=== PATIENT | male | born 1965 | race Caucasian/White ===

== ENCOUNTER → 2017-05-10 | Outpatient (CLI) | payer OTHER ==
[~2017-05-10] MED LIST: ATENOLOL PO; GEMFIBROZIL PO; LEVOTHYROXINE PO; OMEPRAZOLE PO
--- NOTE | 2017-06-27 04:54 | HKNOTE ---
DATE OF SERVICE: 05/10/2017 REFERRING PHYSICIAN: Dr. Cristiano Moore [address] [address] MAIN COMPLAINT: Pain in the left knee. HISTORY OF MAIN COMPLAINT: The patient is a 52-year-old male who is referred by Dr. Cristiano Moore. His main complaint is pain in both knees. He complains that the pain started in the right knee about 4 months ago[address] He saw Dr[address] Frazier. He gave him an injection of cortisone into the knee, which helped a great deal. Today he has pain only in the left knee. The patient seen at [facility] apparently approximately 2 weeks ago and he was put on antibiotics. No aspiration was performed prior to putting him on the antibiotics. The patient believes that they thought he might have an infection in the knee. The patient complains of pain in the left knee, which does not radiate up or down the leg. Pain is described as being severe. He is not able to run and has pain on stairs with every step that he takes. The pain is aggravated by walking, weightbearing, and stair climbing. The leg left knee swells. There is no locking. Occasionally, the knee pops with pain. The knee is unstable and he is afraid to bear weight on the left. He does get rest pain and night pain. He currently takes diclofenac and Lester as well as methylprednisolone Dosepak. He had breakthrough pain increase with Tylenol. He does get night pain and the patient occasionally wakes him up. He has a prior history of surgery to the lumbar spine and a continuing complaint of pain in the lower back. On a level surface, he can walk about 1 block without stopping. He limps all the time. He does not have a shoe lift. He can clip his toenails, but he has pain in the knee. PAST ORTHOPEDIC HISTORY: Anterior cervical spine fusion, January [address] Laboy at [facility], May 2011, lumbar spine fusion by Dr. Laboy at [facility]. PRIOR CORTISONE INTAKE: The patient has had 4 injections in the past. ALCOHOL INTAKE: "Once in a while." OTHER JOINT PROBLEMS: Left knee pain. BLOOD TESTS FOR ARTHRITIS: None. PRIOR INJURIES TO HIPS AND KNEES: None. WORK STATUS: The patient is disabled since 2010 when he had surgery of the spine. PAST MEDICAL HISTORY: 1. Hypertension 2. Hypercholesterolemia. 3. Hypothyroidism. PAST SURGICAL HISTORY: Cervical spine and lumbar spine fusions by Dr. Laboy. ALLERGIES: NONE. MEDICATIONS: 1. Celecoxib 100 mg twice a day. 2. Vitamin D3 2000 units once a day. 3. 40 mg once a day. 4. Levothyroxine 125 mcg daily. 5. Omeprazole to 20 mg daily. 6. Folic acid 1 mg daily. 7. Atenolol 50 mg daily. 8. Paroxetine 4 mg daily for anxiety. FAMILY HISTORY: Mother age 86, alive and has heart problems. Otherwise noncontributory. SYSTEMS REVIEW: Prone to heartburn, hypertension, hemorrhoids. HABITS: The patient does not smoke. He drinks 1-2 alcoholic beverages twice a month. 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 VITAL SIGNS: Height 6 foot 2, weight 180 pounds. Blood pressure 123/70, temperature 98.8. The patient walks without a walking aid. HIPS: Both hips have full range of motion without pain. KNEES: Examination of the left knee. Tender over the medial joint line. Range of motion is full and without pain. Marked tenderness over AC joint and marked tenderness over the medial joint line. Examination of the right knee, normal. IMAGING: Imaging of the left knee obtained at the [facility] today show marked narrowing of the medial joint space and mild narrowing of the lateral aspect of the patellofemoral joint. DIAGNOSIS: Suspect torn meniscus. DISCUSSION: The patient is a 52-year-old male with quite severe pain in the left knee. He has the classic symptoms of an internal derangement of the knee, including instability. His x- rays show the knee marked narrowing of the medial joint space. The degree of arthritis is short on bone on bone, and there are none of the secondary changes of osteoarthritis. The patient is only 52 years old. He was referred to me for consideration for knee replacement, but I believe that he possibly has a torn meniscus. Under sterile conditions, he was given injection of 2 cc of Kenalog and 6 cc of 2 percent lidocaine into the left knee. He was given my oral surgery assistant, Kimberlyn, card and was advised to call her to order an MRI scan of the knee if the knee is not much improved in approximately 2 weeks. This patient was seen on 05/10/2017 at a time when I was suffering quite severely from pain in my lower back and this chart was not dictated until June 26. There may be inaccuracies because some of this was dictated from memory. Dictated By: Jose Ashford MD /andrew/travon /Document#: [id number]
== END | disposition home or self-care (01) ==
LOC: HKI 13:40
DX: M25.562 Pain in left knee (principal); M54.5 Low back pain; I10 Essential (primary) hypertension; E78.00 Pure hypercholesterolemia, unspecified; E03.9 Hypothyroidism, unspecified; Z98.1 Arthrodesis status
CPT/HCPCS: 20610; Z7500; Z7610; G0463

== ENCOUNTER → 2017-07-24 | Outpatient (CLI) | payer OTHER ==
--- NOTE | 2017-07-25 04:30 | HKNOTE ---
DATE OF SERVICE: 07/24/2017 Patient comes in with the MRI scan of his left knee for review. The MRI obtained at the [facility] on 07/09/[address] Garcias as showing "chronic tear of the body and pos terior horn of the medial meniscus. Oblique tear of the posterior horn of the lateral meniscus. Mo derate tricompartmental osteoarthritis. Numerous ossified loose bodies. Synovitis and joint effusi on". The MRI scan was gone over with him and his son. His son is a newly minted RN. His also comes with him. Using an model he was shown what a meniscus is and was then advised that if he wants to get better he should consider having an arthroscopic operation on the knee. The surgery and some of the major possible complications were discussed with him and his son. The postoperative course was discussed with them. Note that they were specifically warned that he will still have significant symptoms to go with the arthritis in his knee, he cannot expect to be cured completely from the procedure. He does have loc eliazar and instability and he certainly can hope that that might be cured by the operation. Patient will call to schedule his surgery in the near future. Dictated By: SARITA ZELAYA/SUMANTH Conf#: [id number] DID#: [id number]
== END | disposition home or self-care (01) ==
LOC: HKI 09:55
DX: M17.12 Unilateral primary osteoarthritis, left knee (principal)
CPT/HCPCS: G0463

== ENCOUNTER → 2017-08-14 | Outpatient (CLI) | payer OTHER ==
--- NOTE | 2017-08-14 18:26 | HKNOTE ---
DATE OF SERVICE: 08/14/2017 CHIEF COMPLAINT: Left knee pain. HISTORY OF PRESENT ILLNESS: This is a 52-year-old male who is complaining of chronic left knee pain . He has seen Dr. Ashford previously. He is having pain both on the inside and outside of his k nee. He has locking, catching and instability of his knee. He uses a cane for ambulation. The vicenta n has been worsening. He is taking pain medications without any pain relief. He has had previous p hysical therapy. He denies any groin or back pain. GAIT: Antalgic gait, reciprocal gait pattern. PHYSICAL EXAMINATION: LEFT KNEE: Neutral alignment. Tender over the medial and lateral joint lines, 0 to 120 degrees ran ge of motion, stable to varus and valgus stress. Negative Lorena, negative anterior drawer, negati ve posterior drawer. Positive Laith's. LEFT KNEE X-RAYS: Multiple views of the left knee demonstrate medial compartment joint space narrow ing. There are peripheral osteophytes. There are also degenerative changes of the patellofemoral j oint. MRI OF LEFT KNEE: There is a flap tear of the posterior horn of the medial meniscus. There is also an oblique tear of the posterior horn of the lateral meniscus. There is moderate tricompartmental arthritis. IMPRESSION: A 52-year-old male with left knee posterior horn medial and posterior horn lateral meni scus tears. PLAN: We will request authorization for left knee arthroscopy. He will require preoperative medica l clearance prior to surgery. Dictated By: BUSTER RUBALCAVA/SUMANTH Conf#: [id number] DID#: [id number]
--- NOTE | 2017-08-16 09:49 | RADRPT ---
PROCEDURE: Left knee radiographs. CLINICAL INDICATION: Left knee pain. TECHNIQUE: Three views. Weight bearing. Frontal, lateral, and patellar view. COMPARISON: No prior studies are available for comparison. FINDINGS: There is no fracture or dislocation. There is a small joint effusion. There are degenerative changes with osteophytes arising from all 3 joint compartment margins. There is medial joint compartment narrowing. Possible intra-articular loose bodies are noted posteriorly i n the medial joint compartment measuring 1.2 cm and 1.4 cm. There is no lytic or blastic lesion. There is no radiopaque foreign body. IMPRESSION: 1. Small joint effusion. 2. Moderate degenerative change. 3. Possible intra-articular loose bodies in the medial joint compartment posteriorly. 4. Otherwise unremarkable images of the left knee. RPTAT: QQ .Jose Bonner MD, MD Date Time Electronically viewed and signed by .Jose Bonner MD, MD on 08/16/2017 09:49 .R/
== END | disposition home or self-care (01) ==
LOC: HKI 14:21
PROVIDERS: ATTEND Orthopaedic Surgery Adult Reconstructive Orthopaedic Surgery
DX: M23.252 Derangement of posterior horn of lateral meniscus due to old tear or injury, left knee (principal); M23.222 Derangement of posterior horn of medial meniscus due to old tear or injury, left knee
CPT/HCPCS: 73562; Z7500; G0463

== ENCOUNTER → 2017-09-03 | Outpatient (CLI) | payer OTHER ==
[~2017-09-03] MED LIST changes: +CELE100C PO; +HYDR-902 PO; +PARO40TA48 PO; +VIT D PO
--- NOTE | 2017-09-04 05:18 | HKNOTE ---
DATE OF SERVICE: 09/03/2017 CHIEF COMPLAINT: Left knee pain. HISTORY OF PRESENT ILLNESS: This is a 52-year-old male with left knee medial and lateral meniscus t ear. He is here today for his preoperative evaluation. PLAN: I discussed the risks associated with surgery, which include but are not limited to infection , deep venous thrombosis, pulmonary embolism, damage to neurovascular structures, numbness around th e incision site, a progression of arthritis, need for knee replacement in the future, heart attack, stroke, risks associated with anesthesia and even . I also discussed nonoperative intervention including pain medications, assistive devices and braces. Patient would like to proceed with surge ry. Informed consent was obtained. All questions were answered to satisfaction. He was given a pr escription for pain medication. The plan is to proceed with a left knee arthroscopy on 09/04/2017 a [facility]. Dictated By: BUSTER RUBALCAVA/SUMANTH Conf#: [id number] DID#: [id number]
== END | disposition home or self-care (01) ==
LOC: HKI 10:49
PROVIDERS: ATTEND Orthopaedic Surgery Adult Reconstructive Orthopaedic Surgery
DX: Z01.818 Encounter for other preprocedural examination (principal); M25.562 Pain in left knee
CPT/HCPCS: G0463

== ENCOUNTER 2017-09-04 05:49 | Day surgery (SDC) | payer OTHER ==
[2017-09-03 14:15] VITALS: Ht 188 cm; Wt 123.8 kg
[2017-09-04] VITALS (12 sets, daily range): BP systolic 109–134; BP diastolic 60–70; PULSE 52–99; RESP 12–20
[~2017-09-04] VITALS: Ht 188 cm; Wt 123.8 kg
[~2017-09-04 05:49] MED LIST changes: -CELE100C PO; -HYDR-902 PO; -PARO40TA48 PO; -VIT D PO
[2017-09-04] MEDS ORDERED: LANSOPRAZOLE 30 MG CAP PO ONE (06:30)
[2017-09-04] MEDS ORDERED: LACTATED RINGER'S 1,000 ML IV SCH (06:30)
[2017-09-04] MEDS ORDERED: DEXAMETHASONE 4 MG/ML 1 ML INJ IV ONE (06:30)
[2017-09-04] MEDS ORDERED: CEFAZOLIN 2 GM/50 ML (PMX) 50 ML IVPB ONE (06:30)
[2017-09-04] MEDS ORDERED: oxyCODONE (CR) 10 MG TAB [oxyCONTIN] PO ONE (06:30)
[2017-09-04] MEDS ORDERED: ACETAMINOPHEN 1000MG/100ML IV 100 ML IVPB ONE (06:30)
[2017-09-04] MEDS ORDERED: CELECOXIB 200 MG CAP PO ONE (06:30)
[2017-09-04] MEDS ORDERED: ONDANSETRON 4 MG INJ IV ONE (06:30)
--- NOTE | 2017-09-04 06:48 | HPN ---
Date/Time of Note Date/Time of Note DATE: 09/04/17 TIME: 06:48 Interval H&P Admission Note Pt. seen H&P reviewed: No system changes ELOY MAYNARD PA-C Sep 04, 2017 06:48
[2017-09-04] MEDS ORDERED: ROCURONIUM 50 MG INJ ONE ×2 (07:00→07:08)
[2017-09-04] MEDS ORDERED: LIDOCAINE 100 MG SYRINGE ONE (07:08)
[2017-09-04] MEDS ORDERED: PROPOFOL 20 ML ONE (07:08)
[2017-09-04] MEDS ORDERED: FENTAnyl 50 MCG/ML VIAL ONE (07:08)
[2017-09-04] MEDS ORDERED: CEFAZOLIN 1 GM INJ ONE (07:08)
[2017-09-04] MEDS ORDERED: HYDR-902 PO (07:10)
[2017-09-04] MEDS ORDERED: VIT D PO (07:10)
[2017-09-04] MEDS ORDERED: PARO40TA48 PO (07:10)
[2017-09-04] MEDS ORDERED: CELE100C PO (07:10)
[2017-09-04] MEDS ORDERED: ONDANSETRON 4 MG INJ ONE (07:11)
[2017-09-04] MEDS ORDERED: FAMOTIDINE 20 MG INJ ONE (07:11)
[2017-09-04] MEDS ORDERED: METOCLOPRAMIDE 10 MG INJ ONE (07:11)
[2017-09-04] MEDS ORDERED: TRIAMCINOLONE ACET 40 MG/ML INJ ONE (07:59)
[2017-09-04] MEDS ORDERED: LIDOCAINE 1% (MPF) 10 ML INJ ONE (07:59)
[2017-09-04] MEDS ORDERED: ONDANSETRON 4 MG INJ IV PRN ×2 (08:00→09:00)
[2017-09-04] MEDS ORDERED: NEOSTIGMINE 3 MG/3 ML SYRINGE ONE (08:22)
[2017-09-04] MEDS ORDERED: GLYCOPYRROLATE 0.4 MG INJ ONE (08:23)
--- NOTE | 2017-09-04 08:24 | SIPON ---
Date/Time of Note Date/Time of Note DATE: 09/04/17 TIME: 08:23 Operative Report Preoperative Diagnosis Left Knee posterior horn medial meniscus tear Postoperative Diagnosis same Operation/Procedure Performed Left knee arthroscopy with partial medial menisectomy Left Knee Steroid Injection Surgeon Cirilo Velazquez MD dairy and food laboratory assistant None Anesthesia: general Estimated blood loss: none Transfusion Required none Specimen none Grafts/Implants none Complications none CIRILO VELAZQUEZ MD Sep 04, 2017 08:24
[2017-09-04] MEDS ORDERED: OXYCODONE/ACETAMINOPHEN (5/325) TAB PO PRN ×2 (09:00)
[2017-09-04] MEDS ORDERED: MIDAZOLAM 1 MG/ML 2 ML INJ IV PRN (09:00)
[2017-09-04] MEDS ORDERED: HYDROmorphONE (0.2 MG/ML) 10ML SYG IV PRN ×3 (09:00)
[2017-09-04] MEDS ORDERED: hydrALAzine 20 MG INJ IV PRN (09:00)
[2017-09-04] MEDS ORDERED: LABETALOL HCL 20MG INJ IV PRN (09:00)
[2017-09-04] MEDS ORDERED: FENTAnyl 50 MCG/ML VIAL IV PRN ×3 (09:00)
[2017-09-04] MEDS ORDERED: KETOROLAC 30 MG INJ IV PRN (09:00)
[2017-09-04] MEDS ORDERED: METOCLOPRAMIDE 10 MG INJ IV PRN (09:00)
[2017-09-04] MEDS ORDERED: MEPERIDINE 25 MG INJ IV PRN (09:00)
[2017-09-04] MEDS ORDERED: EPHEDrine SULFATE 50 MG/5 ML SYG IV PRN (09:00)
[2017-09-04] MEDS ORDERED: ALBUTEROL 0.083% (NEB) 2.5 MG/3 ML AMP HHN PRN (09:00)
[2017-09-04] MEDS ORDERED: DIPHENHYDRAMINE 50 MG INJ IV PRN (09:00)
--- NOTE | 2017-09-04 11:29 | OPR ---
DATE OF OPERATION: 09/04/2017 PREOPERATIVE DIAGNOSIS: Left knee posterior horn medial meniscus tear. POSTOPERATIVE DIAGNOSIS: Left knee posterior horn medial meniscus tear. OPERATION PERFORMED: 1. Left knee arthroscopic partial medial meniscectomy. 2. Left knee steroid injection. SURGEON: Buster Velazquez MD. LAPIDARY APPRENTICE: None. ANESTHESIOLOGIST: Dr. Servin. ANESTHESIA: General. ESTIMATED BLOOD LOSS: Minimal. COMPLICATIONS: None. TOURNIQUET TIME: 18 minutes at 250 mmHg. DISPOSITION: To PACU in stable condition. INDICATION FOR PROCEDURE: This is a 52-year-old male with left knee medial meniscus tear who had fa iled nonoperative management. Risks, benefits and alternatives of surgical intervention were discus sed with the patient and informed consent was obtained. The risks of surgery include but are not limited to infection, deep venous thrombosis, pulmonary emb olism, numbness around the incision site, wound healing problems, progression of arthritis, need for knee replacement in the future, heart attack, stroke, risks associated with anesthesia and even ronna th. DETAILS OF PROCEDURE: The patient was met in the preoperative suite and the correct operative site was confirmed and marked. He was then brought into operating room. After induction of general anes thesia, he was placed in the supine position on the operating table. A tourniquet was applied to th e left upper thigh and the left lower extremity was prepped and draped in the usual sterile fashion. Before starting, a timeout was taken to identify the correct operative site and to confirm that pr eoperative antibiotics consisting of 1 gram of IV Ancef was administered. At this point, the leg wa s then exsanguinated with an Esmarch and tourniquet was then insufflated to 250 mmHg for the above-n oted time. A stab incision was made along the anterolateral aspect for the anterolateral portal. T he trocar was then inserted followed by the arthroscope. The patellofemoral joint was visualized. The arthroscope was then entered into the patellofemoral joint and into the medial gutter. There we re no loose bodies or plica seen. The arthroscope was then introduced into the medial compartment. 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 There was grade III chondromalacia of the medial tibial plateau. At this point, the spinal need le was then used. The chondromalacia changes were all stable and did not require any chondroplasty. The spinal needle was used for orientation of the medial portal. A small stab incision was made a nd the probe was introduced into the medial compartment. A tear of the posterior horn of the medial meniscus was identified. The 3.5 mm sucker shaver was then introduced into the medial compartment and a partial medial meniscectomy was performed. At this point, the arthroscope was then introduced into the intercondylar notch. The anterior cruciate ligament was probed and noted to be degenerate d. The arthroscope was introduced into the lateral compartment. No abnormalities were seen within the lateral compartment. The instruments were removed. There was no evidence of breakage. After r emoval of the instruments, an injection consisting of 1 mL of Kenalog along with 3 mL of 1% lidocain e was distilled through the lateral portal. The incision sites were closed using 3-0 nylon. A ster ile dressing followed by a total groin Dheeraj wrap was applied. There were no complications. He was t ransferred to PACU in stable condition. POSTOPERATIVE CARE: He will be weightbearing as tolerated. He will receive medications for pain co ntrol. He was encouraged to flex and extend the knee as well as the ankle. Crutches will be provid ed if he is unable to ambulate without the use of assistive devices. He will follow up at the [facility] within 2 weeks postoperatively. Dictated By: BUSTER RUBALCAVA/SUMANTH Conf#: [id number] DID#: [id number]
[2017-09-04] MEDS ORDERED: HYDROCODONE/APAP (10/325) TAB PO PRN (13:00)
[2017-09-04] MEDS ORDERED: morphine 10 MG INJ IV PRN (13:00)
[2017-09-04] MEDS ORDERED: HYDROCODONE/APAP (5/325) TAB PO PRN (13:00)
== END 2017-09-04 10:00 | disposition home or self-care (01) ==
LOC: SDS 05:49
PROVIDERS: ATTEND Orthopaedic Surgery Adult Reconstructive Orthopaedic Surgery
DX: S83.242A Other tear of medial meniscus, current injury, left knee, initial encounter (principal); E78.5 Hyperlipidemia, unspecified; I10 Essential (primary) hypertension; E66.01 Morbid (severe) obesity due to excess calories; X58.XXXA Exposure to other specified factors, initial encounter; Y93.89 Activity, other specified; Y92.89 Other specified places as the place of occurrence of the external cause; Y99.8 Other external cause status
CPT/HCPCS: 29881; J0131; J0690; J1100; J2001; J2405; J3010; Z7512; Z7610; J2710; J2765

== ENCOUNTER → 2017-09-18 | Outpatient (CLI) | END | disposition home or self-care (01) ==

== ENCOUNTER 2018-11-14 06:50 | Inpatient (IN) | payer OTHER ==
[2018-11-14] VITALS (22 sets, daily range): BP systolic 80–119; BP diastolic 51–89; PULSE 76–99; RESP 12–34; Ht 188 cm; Wt 117.5 kg
[~2018-11-14] VITALS: Ht 188 cm; Wt 117.5 kg
[~2018-11-14 06:50] MED LIST changes: +CEFAZOLIN 2 GM/50 ML (PMX) 50 ML IVPB SCH; +CELE100C PO; +HYDR-3980 PO; +PARO40TA63 PO; +SOD CHLORIDE 0.9% 1,000 ML IV SCH; +VIT D PO
[2018-11-14] MEDS ORDERED: EPHEDrine SULFATE 50 MG/5 ML SYG ONE (07:00)
[2018-11-14] MEDS ORDERED: SEVOFLURANE 15 MIN ONE (07:00)
[2018-11-14] MEDS ORDERED: LEVO137T26 PO (08:19)
[2018-11-14] MEDS ORDERED: ATEN50TA PO (08:19)
[2018-11-14] MEDS ORDERED: ATOR40TA68 PO (08:20)
[2018-11-14] MEDS ORDERED: OMEP40CA6 PO (08:20)
[2018-11-14] MEDS ORDERED: ESCI20TA38 PO (08:20)
[2018-11-14] MEDS ORDERED: DICL75TA2 PO (08:21)
--- NOTE | 2018-11-14 10:23 | PREAC ---
Date/Time of Note Date/Time of Note DATE: 11/14/18 TIME: 10:22 Anesthesia Eval and Record Evaluation Time Pre-Procedure Interview DATE: 11/14/18 TIME: 10:22 Age 53 Sex male NPO: 8 hrs Preoperative diagnosis cholelithiasis Planned procedure laparoscopic cholecystectomy Past Medical History Past Medical History: Includes Cardio: HTN, Dyslipidemia Endo: Hypothyroid GI: GERD, Obesity Psych: Anxiety Surgery & Anesthesia Issues No known issue Meds Anticoagulation: No Beta Jose Raul within 24 hr: No Reason Beta Jose Raul not given: Pt. not on B-Jose Raul Reported Medications Diclofenac Sodium* (Diclofenac Sodium*) 75 Mg Tablet., 75 MG PO BID, #60 TAB 11/14/18 Escitalopram Oxalate* (Escitalopram Oxalate*) 20 Mg Tablet, 20 MG PO DAILY, #30 TAB 11/14/18 Atorvastatin* (Atorvastatin*) 40 Mg Tablet, 40 MG PO QHS, #30 TAB 11/14/18 Omeprazole* (Omeprazole*) 40 Mg Capsule., 40 MG PO DAILY, #30 CAP 11/14/18 Levothyroxine Sodium* (Levoxyl*) 137 Mcg Tablet, 137 MCG PO BEFORE BREAKFAST, #30 TAB 11/14/18 Atenolol* (Atenolol*) 50 Mg Tablet, 50 MG PO DAILY, #30 TAB 11/14/18 Discontinued Reported Medications Celecoxib* (Celebrex*) 100 Mg Capsule, 100 MG PO BID, CAP 09/04/17 Hydrocodone/Acetaminophen (Warren 10-325 Tablet) 1 Each Tablet, 1 EACH PO TID for PAIN, TAB 09/04/17 [Vit D] No Conflict Check, 2000 UNIT PO DAILY 09/04/17 Paroxetine Hcl* (Paxil*) 40 Mg Tablet, 40 MG PO DAILY, TAB 09/04/17 [Levothyroxine] No Conflict Check, 137 MCG PO DAILY 02/07/16 [Gemfibrozil] No Conflict Check, PO DAILY 02/07/16 [Atenolol] No Conflict Check, 50 MG PO DAILY 02/07/16 [Omeprazole] No Conflict Check, 20 MG PO DAILY 02/07/16 Current Medications Sodium Chloride 1,000 ml @ 75 mls/hr [id number] IV ; Start 11/14/18 at 06:00; Stop 11/14/18 at 19:19 Cefazolin Sodium/ Dextrose 50 ml @ 100 mls/hr PREOP IVPB ; Start 11/14/18 at 06:00; Stop 11/14/18 at 17:00 Meds reviewed: Yes Allergies Coded Allergies: tramadol (Verified Allergy, Severe, ITCHING, 11/14/18) Allergies Reviewed: Yes Labs/Studies Labs Reviewed: Reviewed by anesthesiologist test: N/A Pre-procedure Exam Last vitals Vital Signs Date Temp Pulse Resp B/P (MAP) Pulse Ox O2 O2 Flow FiO2 Time Delivery Rate 11/14/18 98.3 82 16 106/62 94 Room Air 08:44 (77) Airway: Adequate mouth opening, Adequate thyromental dist Mallampati: Mallampati III Teeth: Normal Lung: Normal Heart: Normal ASA Physical Status ASA physical status: 2 Emergency: None Planned Anesthetic General/MAC: ETT Nerve block: TAP (bilateral) Planned Pain Management Single shot nerve block, Parenteral pain med Pre-operative Attestations Prior to commencing anesthesia and surgery, the patient was re-evaluated, there was verification of: *The patient's identity *The results of appropriate recent lab work and preoperative vital signs *The above evaluation not changing prior to induction *Anesthetic plan, risk benefits, alternative and complications discussed with patient/family; questions answered; patient/family understands, accepts and wishes to proceed. LYUDMILA RODRIGUEZ MD Nov 14, 2018 10:23
[2018-11-14] MEDS ORDERED: FENTAnyl 50 MCG/ML VIAL IV PRN ×2 (10:30)
[2018-11-14] MEDS ORDERED: HYDROmorphONE 1 MG/5 ML IV SYRINGE IV PRN ×3 (10:30)
[2018-11-14] MEDS ORDERED: MEPERIDINE 25 MG INJ IV PRN (10:30)
[2018-11-14] MEDS ORDERED: PROCHLORPERAZINE 10 MG INJ IV PRN (10:30)
[2018-11-14] MEDS ORDERED: DIPHENHYDRAMINE 50 MG INJ IV PRN (10:30)
[2018-11-14] MEDS ORDERED: OXYCODONE/ACETAMINOPHEN (5/325) TAB PO PRN ×2 (10:30)
[2018-11-14] MEDS ORDERED: ONDANSETRON 4 MG INJ IV PRN (10:30)
[2018-11-14] MEDS ORDERED: FENTAnyl 50 MCG/ML VIAL ONE (10:39)
[2018-11-14] MEDS ORDERED: MIDAZOLAM 1 MG/ML 2 ML INJ ONE (10:39)
[2018-11-14] MEDS ORDERED: SUCCINYLCHOLINE CHLORIDE 100 MG/5 ML SYG IV ONE (10:43)
[2018-11-14] MEDS ORDERED: ROCURONIUM 50 MG INJ ONE ×2 (10:43→11:40)
[2018-11-14] MEDS ORDERED: PROPOFOL 20 ML ONE ×2 (10:43→11:40)
[2018-11-14] MEDS ORDERED: LIDOCAINE 2% (SDV) 5 ML INJ ONE (10:44)
[2018-11-14] MEDS ORDERED: ROPIVACAINE 0.5 % 30 ML VIAL ONE (10:44)
[2018-11-14] MEDS ORDERED: ONDANSETRON 4 MG INJ ONE (10:58)
[2018-11-14] MEDS ORDERED: CEFAZOLIN 1 GM INJ ONE (10:58)
[2018-11-14] MEDS ORDERED: DEXAMETHASONE 4 MG/ML 5 ML INJ ONE (10:58)
[2018-11-14] MEDS ORDERED: HYDROmorphONE 2 MG/ML SYG ONE (11:37)
[2018-11-14] MEDS ORDERED: GLYCOPYRROLATE 0.4 MG INJ ONE ×2 (12:32→12:34)
[2018-11-14] MEDS ORDERED: NEOSTIGMINE 3 MG/3 ML SYRINGE ONE ×2 (12:32→12:33)
[2018-11-14] MEDS ORDERED: BUPIVACAINE 0.5% (SDV) 30 ML INJ ONE (12:33)
[2018-11-14] MEDS ORDERED: PHENYLephrine (100 MCG/ML) 10ML SYG ONE (12:38)
--- NOTE | 2018-11-14 12:52 | OPR ---
Date/Time of Note Date/Time of Note DATE: 11/14/18 TIME: 12:44 Operative Report Procedure Date: Nov 14, 2018 Preoperative Diagnosis symptomatic gallstones Postoperative Diagnosis acute and chronic cholecystitis and abscess Operation/Procedure Performed 1. laparoscopic converted to open cholecystectomy 2. intraabdominal placement of percutaneous #19 stiven drain 3. washout of abscess of right upper quadrant intraabdominal abscess 4. therapeutic injection of subcutaneous local anesthesia 5. open lysis of adhesions 6. localized adjacent transfer with the use of skin flaps 42 sq cm defect Surgeon see signature line Manager Star none Anesthesia Type: general Estimated Blood Loss: 250 - 300 ml's Transfusion none Specimen gallbladder Grafts/Implants none Complications none Pt Condition Post Procedure: stable Indications This is a 53-year-old male with gallstones. He requires surgical excision of his gallbladder. Risks alternatives benefits and percent were discussed the patient. In particular potential complications including but not limited to bleeding infection intra-abdominal organ injury, bile duct injury need to open conversion were discussed the patient. Patient expressed understanding and consents to the operation. Procedure Description Patient is taken to the OR and prepped and draped in usual sterile fashion. Surgical time was performed. IV antibiotics given. Infra umbilical transverse incision was made with a 15 blade. Dissection with cautery was carried onto the fascia. The fascia was grasped with Bren and divided with curved Medrano scissors. 0 Vicryl U stitches placed into the fascia. Rosa trocar was introduced. Pneumoperitoneum is established. Midepigastric 12 mm optical trochars placed under direct position. Right upper quadrant upper flank 5 mm optical trochars were placed under direct visualization. Upon initial inspection due to his body habitus of weight of 117 kg the division was limited. Further inspection showed complete adhesions area of omentum to the right upper quadrant and the gallbladder was not visible. Attempted dissection was performed laparoscopically however there is evidence of acute cholecystitis. Additionally a pus pocket was identified. The pus pocket was opened and irrigated and suctioned out. Further dissection it appeared to be very challenging due to the active infection. Right subcostal incision was made with a 10 blade. Dissection with cautery was carried down through the layers of the abdominal wall and through the muscle layers. Tricia retractors were placed. Extensive lysis of adhesions was performed. There is multiple adhesions to the right upper quadrant and to the liver bed and over the gallbladder. This was performed meticulously with cautery and harmonic. This allowed visualization of the gallbladder. There is an extensive amount of stones with inflamed gallbladder with thickened wall. A pus pocket was again encountered in this area was washed out and irrigated. #19 Stiven drain was placed and tunneled through the right flank port site. This was left in place. The gallbladder was then dissected from the dome down approach and all the way down to the cystic duct. The cystic was thickened. An attempt was made to divide with a Rodanthe stapler however the cystic duct wall was thickened and so after resection with cautery this cystic duct stump was then oversewn with a running 0 Vicryl in 2 layers. This area was irrigated out and all contents were extracted. The liver bed was checked for hemostasis. There was some oozing. The liver bed was then imbricated and closed with blunt liver needle chromic 0 suture. The area of oozing was closed with a [id number] suture with a chromic and also hemostasis was augmented with snow. Good hemostasis was established and the drain was placed in appropriate right upper quadrant to allow further drainage of the infection. All counts were correct and closure was performed in a 2 layer fashion first closed using the posterior rectus sheath along all the way to the lateral portion and the anterior layer was also closed with a running #1 loop PDS. The surgical wound was then irrigated with irrigation to clean out the debris. The skin was then closed with skin jonathan. The infra umbilical port site was also closed with skin jonathan. Additional therapeutic contains local anesthesia was injected at the incision site. The drain was secured with 2-0 nylon. Dry dressings were applied. Kerri PARKER Nov 14, 2018 12:52
--- NOTE | 2018-11-14 12:55 | PAC ---
Date/Time of Note Date/Time of Note DATE: 11/14/18 TIME: 12:54 Post-Anesthesia Notes Post-Anesthesia Note Last documented vital signs Vital Signs Date Temp Pulse Resp B/P (MAP) Pulse Ox O2 O2 Flow FiO2 Time Delivery Rate 11/14/18 98.3 82 16 106/62 94 Room Air 08:44 (77) Activity: WNL Respiratory function: WNL Cardiovascular function: WNL Mental status: Baseline Pain reasonably controlled: Yes Hydration appropriate: Yes Nausea/Vomiting absent: Yes Comments BP: 119/73 HR: 91 RR: 15 SaO2: 97% T: 99.2 LYUDMILA RODRIGUEZ MD Nov 14, 2018 12:55
[2018-11-14] MEDS ORDERED: HYDROmorphONE 0.5 MG/0.5 ML SYG IV PRN (13:00)
[2018-11-14] MEDS ORDERED: ACETAMINOPHEN 325 MG TAB PO PRN (13:00)
[2018-11-14] MEDS ORDERED: HYDROCODONE/APAP (10/325) TAB PO PRN (13:00)
[2018-11-14] MEDS ORDERED: NALOXONE (0.4 MG/ML) INJ IV PRN (13:00)
[2018-11-14] MEDS: SOD CHLORIDE 0.9% 1,000 ML IV SCH ×2 (13:31→23:38)
[2018-11-14] MEDS: HYDROmorphONE 0.2 MG/ML PCA IV SCH (13:35)
[2018-11-14] MEDS: FENTAnyl 50 MCG/ML VIAL IV PRN ×2 (13:37→13:51)
[2018-11-14] MEDS: AMPICILLIN/SULB 3 GM/NS (PMX) 100 ML IVPB SCH ×2 (13:49→18:21)
[2018-11-15] MEDS: AMPICILLIN/SULB 3 GM/NS (PMX) 100 ML IVPB SCH ×2 (01:01→06:33)
[2018-11-15 02:00] VITALS: BP 105/62; PULSE 71; RESP 19
--- NOTE | 2018-11-15 02:04 | HP ---
DATE OF ADMISSION: 11/14/2018 CHIEF COMPLAINT: Abdominal pain. HISTORY OF PRESENT ILLNESS: The patient is a 53-year-old gentleman with history of hypertension, dys lipidemia, was seen by Dr. Cheema as an outpatient for symptomatic gallstones. The patient was brought into hospital today and underwent laparoscopic converted to open cholecystectomy. The patient has si gnificant postoperative pain and is admitted for further evaluation and management. The patient melissa es history of headache, dizziness, syncope. No history of sore throat. No history of cough. No his tory of chest pain. No history of leg edema. No history of resting leg pain. No history of weaknes s or paresthesias in any extremities. The patient remains awake and responsive. PAST MEDICAL HISTORY: As stated above. PAST SURGICAL HISTORY: The patient is status post C-spine surgery for disk disease, status post lumb ar spine surgery, history of right total knee replacement and left knee arthroscopic meniscal repair. SOCIAL HISTORY: No smoking, no alcohol. FAMILY HISTORY: Noncontributory. ALLERGIES: TRAMADOL. PHYSICAL EXAMINATION: GENERAL: Revealed the patient to be awake, alert, fairly oriented. VITAL SIGNS: Temperature 97.5, pulse 87, respiration 18, blood pressure 113/64, O2 saturation 94% on 3 liters nasal cannula. HEENT: Atraumatic and normocephalic. Conjunctivae and lids are normal. Oropharynx is clear. NECK: Supple. No mass, no thyromegaly. CHEST: Fairly clear. CARDIOVASCULAR: S1, S2 normal. No murmur. ABDOMEN: The patient is status post surgery. EXTREMITIES: No leg edema. Pedal pulses are palpable. SKIN: Without acute rash or ulcer. NEUROLOGIC: The patient is awake, alert, fairly oriented with no gross focal deficit. LABORATORY DATA: Done this morning, WBC 9.8, hemoglobin 10.7, platelet 199. Sodium 135, potassium 3 .8, BUN 23, creatinine 1. Bilirubin 1, AST 79, ALT 61, alkaline phosphatase 128. IMPRESSION: 1. Symptomatic cholelithiasis, status post open cholecystectomy. 2. Hypertension. 3. Dyslipidemia. 4. Hypothyroidism. PLAN: The patient will be admitted on medical floor. For pain control, the patient will be given Ty lenol, [place] and IV Dilaudid. We will resume atenolol, levothyroxine and Lipitor. We will use SCD f or DVT prophylaxis and Protonix for GI prophylaxis. The patient also had been taking PPI as an outpa tient. Further recommendation will depend on hospital course. Dictated By: PRICILLA AGUILAR/SUMANTH Conf#: [id number] DID#: [id number] CC: MARIO CHEEMA MD;*EndCC*
[2018-11-15] MEDS: HYDROmorphONE 0.2 MG/ML PCA IV SCH (06:14)
[2018-11-15] MEDS: LEVOTHYROXINE 137 MCG TAB PO SCH (06:33)
[2018-11-15 07:20] VITALS: BP 132/76; PULSE 74; RESP 16
--- NOTE | 2018-11-15 07:41 | PN ---
Date/Time of Note Date/Time of Note DATE: 11/15/18 TIME: 07:40 Assessment/Plan VTE Prophylaxis Risk score (from Ns)>0 risk: 8 SCD applied (from Ns): Yes Pharmacological prophylaxis: other Lines/Catheters IV Catheter Type (from Nrs): Peripheral IV Assessment/Plan Assessment/Plan lap converted to open nicholas with drain placement due to the infected gallbladder will continue abx while in the hospital for another day Result Diagram: 11/15/18 0500 11/15/18 0500 Results 24hrs Laboratory Tests Test 11/14/18 13:23 11/15/18 05:00 White Blood Count 9.8 10.8 Red Blood Count 3.82 L 3.86 L Hemoglobin 10.7 L 10.6 L Hematocrit 33.1 L 33.4 L Mean Corpuscular Volume 86.6 86.5 Mean Corpuscular Hemoglobin 28.0 L 27.5 L Mean Corpuscular Hemoglobin Concent 32.3 31.7 L Red Cell Distribution Width 14.3 14.3 Platelet Count 199 227 Mean Platelet Volume 10.0 10.2 Immature Granulocytes % 0.600 H 1.000 H Neutrophils % 84.6 H Segmented Neutrophils % (Manual) 63 Band Neutrophils % (Manual) 32 H Lymphocytes % 5.9 L Lymphocytes % (Manual) 5 L Monocytes % 8.3 Eosinophils % 0.0 Basophils % 0.2 Nucleated Red Blood Cells % 0.0 0.0 Immature Granulocytes # 0.060 H 0.110 H Neutrophils # 9.1 H Neutrophils # (Manual) 6.5 Band Neutrophils # 3.1 H Lymphocytes (Manual) 0.4 L Lymphocytes # 0.6 L Monocytes # 0.9 Eosinophils # 0.0 Basophils # 0.0 Nucleated Red Blood Cells # 0.0 Platelet Estimate NORMAL Giant Platelets 1 H Anisocytosis 2+ Microcytosis 2+ Sodium Level 135 138 Potassium Level 3.8 4.3 Chloride Level 100 99 Carbon Dioxide Level 27 29 Anion Gap 8 10 Blood Urea Nitrogen 23 H 18 Creatinine 1.07 0.97 Est Glomerular Filtrat Rate mL/min > 60 > 60 Glucose Level 135 123 Calcium Level 8.0 L 8.6 Total Bilirubin 1.0 0.4 Direct Bilirubin 0.50 H 0.00 # Indirect Bilirubin 0.5 0.4 Aspartate Amino Transf (AST/SGOT) 79 H 72 H Alanine Aminotransferase (ALT/SGPT) 61 57 Alkaline Phosphatase 128 H 135 H Total Protein 6.3 7.1 Albumin 3.2 L 3.5 Globulin 3.10 3.60 H Albumin/Globulin Ratio 1.03 0.97 Subjective 24 Hr Interval Summary Free Text/Dictation patient doing well, expected pain from incision, tolerated liquids Exam/Review of Systems Exam Vitals Vital Signs Date Temp Pulse Resp B/P (MAP) Pulse Ox O2 O2 Flow FiO2 Time Delivery Rate 11/15/18 18 06:19 11/15/18 98.3 71 105/62 97 02:00 (76) 11/14/18 Nasal 3.0 15:04 Cannula Intake and Output 11/14/18 11/14/18 11/15/18 1414:59 22:59 06:59 IntakeIntake Total 2500 ml 600 ml 700 ml OutputOutput Total 425 ml 210 ml 335 ml BalanceBalance 2075 ml 390 ml 365 ml Exam c/d/i drain in place with serosanguinous drainage Results Results 24hrs Laboratory Tests Test 11/14/18 13:23 11/15/18 05:00 White Blood Count 9.8 10.8 Red Blood Count 3.82 L 3.86 L Hemoglobin 10.7 L 10.6 L Hematocrit 33.1 L 33.4 L Mean Corpuscular Volume 86.6 86.5 Mean Corpuscular Hemoglobin 28.0 L 27.5 L Mean Corpuscular Hemoglobin Concent 32.3 31.7 L Red Cell Distribution Width 14.3 14.3 Platelet Count 199 227 Mean Platelet Volume 10.0 10.2 Immature Granulocytes % 0.600 H 1.000 H Neutrophils % 84.6 H Segmented Neutrophils % (Manual) 63 Band Neutrophils % (Manual) 32 H Lymphocytes % 5.9 L Lymphocytes % (Manual) 5 L Monocytes % 8.3 Eosinophils % 0.0 Basophils % 0.2 Nucleated Red Blood Cells % 0.0 0.0 Immature Granulocytes # 0.060 H 0.110 H Neutrophils # 9.1 H Neutrophils # (Manual) 6.5 Band Neutrophils # 3.1 H Lymphocytes (Manual) 0.4 L Lymphocytes # 0.6 L Monocytes # 0.9 Eosinophils # 0.0 Basophils # 0.0 Nucleated Red Blood Cells # 0.0 Platelet Estimate NORMAL Giant Platelets 1 H Anisocytosis 2+ Microcytosis 2+ Sodium Level 135 138 Potassium Level 3.8 4.3 Chloride Level 100 99 Carbon Dioxide Level 27 29 Anion Gap 8 10 Blood Urea Nitrogen 23 H 18 Creatinine 1.07 0.97 Est Glomerular Filtrat Rate mL/min > 60 > 60 Glucose Level 135 123 Calcium Level 8.0 L 8.6 Total Bilirubin 1.0 0.4 Direct Bilirubin 0.50 H 0.00 # Indirect Bilirubin 0.5 0.4 Aspartate Amino Transf (AST/SGOT) 79 H 72 H Alanine Aminotransferase (ALT/SGPT) 61 57 Alkaline Phosphatase 128 H 135 H Total Protein 6.3 7.1 Albumin 3.2 L 3.5 Globulin 3.10 3.60 H Albumin/Globulin Ratio 1.03 0.97 Medications Medication Current Medications Ampicillin Sodium/ Sulbactam Sodium 100 ml @ 200 mls/hr Q6H IVPB Last administered on 11/15/18at 06:33; Admin Dose 200 MLS/HR; Start 11/14/18 at 13:00; Stop 11/15/18 at 12:59 Hydromorphone HCl (Dilaudid) 0.5 mg Q2H PRN IV PAIN LEVEL 6-10; Start 11/14/18 at 13:00 Acetaminophen/ Hydrocodone Bitart ([place] (10/325)) 1 tab Q6H PRN PO PAIN; Start 11/14/18 at 13:00 Acetaminophen (Tylenol Tab) 650 mg Q6H PRN PO MILD PAIN(1-3)OR ELEVATED TEMP; Start 11/14/18 at 13:00 Sodium Chloride 1,000 ml @ 100 mls/hr Q10H IV Last administered on 11/14/18at 23:38; Admin Dose 100 MLS/HR; Start 11/14/18 at 12:39 Naloxone HCl (Narcan) 0.2 mg PRN PRN IV RR < 8; Start 11/14/18 at 13:00 Hydromorphone HCl (Dilaudid [employer]) Q4PCA IV Last administered on 11/15/18at 06:14; Admin Dose 6 MG; Start 11/14/18 at 13:00 Atenolol (Tenormin) 50 mg DAILY PO ; Start 11/15/18 at 09:00 Atorvastatin Calcium (Lipitor) 40 mg QHS PO ; Start 11/15/18 at 21:00 Escitalopram Oxalate (Lexapro) 20 mg DAILY PO ; Start 11/15/18 at 09:00 Levothyroxine Sodium (Synthroid) 137 mcg BEFORE BREAKFAST PO Last administered on 11/15/18at 06:33; Admin Dose 137 MCG; Start 11/15/18 at 07:00 Kerri PARKER Nov 15, 2018 07:41
[2018-11-15] MEDS: ESCITALOPRAM 10 MG TAB PO SCH (09:01)
[2018-11-15] MEDS: ATENOLOL 50 MG TAB PO SCH (09:06)
[2018-11-15] MEDS: PANTOPRAZOLE (EC) 40 MG TAB PO SCH (10:47)
[2018-11-15] MEDS: SOD CHLORIDE 0.9% 1,000 ML IV SCH ×2 (10:48→21:29)
[2018-11-15 14:00] VITALS: BP 123/60; PULSE 75; RESP 16
--- NOTE | 2018-11-15 15:41 | PN ---
Date/Time of Note Date/Time of Note DATE: 11/15/18 TIME: 15:41 Assessment/Plan VTE Prophylaxis Risk score (from Ns)>0 risk: 7 SCD applied (from Ns): Yes Lines/Catheters IV C[facility]ter Type (from [facility]): Peripheral IV Assessment/Plan Assessment/Plan 1. Symptomatic cholelithiasis, status post open cholecystectomy. 2. Hypertension. 3. Dyslipidemia. 4. Hypothyroidism. Result Diagram: 11/15/18 0500 11/15/18 0500 Results 24hrs Laboratory Tests Test 11/15/18 05:00 White Blood Count 10.8 Red Blood Count 3.86 L Hemoglobin 10.6 L Hematocrit 33.4 L Mean Corpuscular Volume 86.5 Mean Corpuscular Hemoglobin 27.5 L Mean Corpuscular Hemoglobin Concent 31.7 L Red Cell Distribution Width 14.3 Platelet Count 227 Mean Platelet Volume 10.2 Immature Granulocytes % 1.000 H Neutrophils % 84.6 H Lymphocytes % 5.9 L Monocytes % 8.3 Eosinophils % 0.0 Basophils % 0.2 Nucleated Red Blood Cells % 0.0 Immature Granulocytes # 0.110 H Neutrophils # 9.1 H Lymphocytes # 0.6 L Monocytes # 0.9 Eosinophils # 0.0 Basophils # 0.0 Nucleated Red Blood Cells # 0.0 Sodium Level 138 Potassium Level 4.3 Chloride Level 99 Carbon Dioxide Level 29 Anion Gap 10 Blood Urea Nitrogen 18 Creatinine 0.97 Est Glomerular Filtrat Rate mL/min > 60 Glucose Level 123 Calcium Level 8.6 Total Bilirubin 0.4 Direct Bilirubin 0.00 # Indirect Bilirubin 0.4 Aspartate Amino Transf (AST/SGOT) 72 H Alanine Aminotransferase (ALT/SGPT) 57 Alkaline Phosphatase 135 H Total Protein 7.1 Albumin 3.5 Globulin 3.60 H Albumin/Globulin Ratio 0.97 Exam/Review of Systems Exam Vitals Vital Signs Date Temp Pulse Resp B/P (MAP) Pulse Ox O2 O2 Flow FiO2 Time Delivery Rate 11/15/18 17 14:59 11/15/18 97.9 75 123/60 90 Room Air 14:00 (81) 11/14/18 3.0 15:04 Intake and Output 11/14/18 11/14/18 11/15/18 1515:00 23:00 07:00 IntakeIntake Total 2600 ml 500 ml 700 ml OutputOutput Total 425 ml 210 ml 335 ml BalanceBalance 2175 ml 290 ml 365 ml Results Results 24hrs Laboratory Tests Test 11/15/18 05:00 White Blood Count 10.8 Red Blood Count 3.86 L Hemoglobin 10.6 L Hematocrit 33.4 L Mean Corpuscular Volume 86.5 Mean Corpuscular Hemoglobin 27.5 L Mean Corpuscular Hemoglobin Concent 31.7 L Red Cell Distribution Width 14.3 Platelet Count 227 Mean Platelet Volume 10.2 Immature Granulocytes % 1.000 H Neutrophils % 84.6 H Lymphocytes % 5.9 L Monocytes % 8.3 Eosinophils % 0.0 Basophils % 0.2 Nucleated Red Blood Cells % 0.0 Immature Granulocytes # 0.110 H Neutrophils # 9.1 H Lymphocytes # 0.6 L Monocytes # 0.9 Eosinophils # 0.0 Basophils # 0.0 Nucleated Red Blood Cells # 0.0 Sodium Level 138 Potassium Level 4.3 Chloride Level 99 Carbon Dioxide Level 29 Anion Gap 10 Blood Urea Nitrogen 18 Creatinine 0.97 Est Glomerular Filtrat Rate mL/min > 60 Glucose Level 123 Calcium Level 8.6 Total Bilirubin 0.4 Direct Bilirubin 0.00 # Indirect Bilirubin 0.4 Aspartate Amino Transf (AST/SGOT) 72 H Alanine Aminotransferase (ALT/SGPT) 57 Alkaline Phosphatase 135 H Total Protein 7.1 Albumin 3.5 Globulin 3.60 H Albumin/Globulin Ratio 0.97 Medications Medication Current Medications Hydromorphone HCl (Dilaudid) 0.5 mg Q2H PRN IV PAIN LEVEL 6-10; Start 11/14/18 at 13:00 Acetaminophen/ Hydrocodone Bitart ([place] (10/325)) 1 tab Q6H PRN PO PAIN; Start 11/14/18 at 13:00 Acetaminophen (Tylenol Tab) 650 mg Q6H PRN PO MILD PAIN(1-3)OR ELEVATED TEMP; Start 11/14/18 at 13:00 Sodium Chloride 1,000 ml @ 100 mls/hr Q10H IV Last administered on 11/15/18at 10:48; Admin Dose 100 MLS/HR; Start 11/14/18 at 12:39 Naloxone HCl (Narcan) 0.2 mg PRN PRN IV RR < 8; Start 11/14/18 at 13:00 Hydromorphone HCl (Dilaudid TILE SETTER) Q4PCA IV Last administered on 11/15/18at 06:14; Admin Dose 6 MG; Start 11/14/18 at 13:00 Atenolol (Tenormin) 50 mg DAILY PO Last administered on 11/15/18at 09:06; Admin Dose 50 MG; Start 11/15/18 at 09:00 Atorvastatin Calcium (Lipitor) 40 mg QHS PO ; Start 11/15/18 at 21:00 Escitalopram Oxalate (Lexapro) 20 mg DAILY PO Last administered on 11/15/18at 09:01; Admin Dose 20 MG; Start 11/15/18 at 09:00 Levothyroxine Sodium (Synthroid) 137 mcg BEFORE BREAKFAST PO Last administered on 11/15/18at 06:33; Admin Dose 137 MCG; Start 11/15/18 at 07:00 Pantoprazole (Protonix Tab) 40 mg DAILY@06 PO Last administered on 11/15/18at 10:47; Admin Dose 40 MG; Start 11/15/18 at 10:00 DAVIE DECKER Nov 15, 2018 15:41
[2018-11-15 20:00] VITALS: BP 127/72; PULSE 77; RESP 17
[2018-11-15] MEDS: ATORVASTATIN 40 MG TAB PO SCH (21:29)
[2018-11-16] MEDS ORDERED: BISACODYL (EC) 5 MG TAB PO PRN (01:30)
[2018-11-16 02:16] VITALS: BP 130/65; PULSE 68; RESP 18
[2018-11-16] MEDS: PANTOPRAZOLE (EC) 40 MG TAB PO SCH (05:58)
[2018-11-16] MEDS: LEVOTHYROXINE 137 MCG TAB PO SCH (05:59)
[2018-11-16] MEDS: SOD CHLORIDE 0.9% 1,000 ML IV SCH (05:59)
[2018-11-16 08:16] VITALS: BP 130/75; PULSE 73; RESP 18
[2018-11-16] MEDS: ESCITALOPRAM 10 MG TAB PO SCH (09:21)
[2018-11-16] MEDS: ATENOLOL 50 MG TAB PO SCH (09:21)
--- NOTE | 2018-11-16 12:33 | PN ---
Date/Time of Note Date/Time of Note DATE: 11/16/18 TIME: 12:33 Assessment/Plan VTE Prophylaxis Risk score (from Ns)>0 risk: 7 SCD applied (from Ns): Yes Pharmacological prophylaxis: LMWH Lines/Catheters IV Catheter Type (from Nrsg): Peripheral IV Assessment/Plan Hospital Course 1. Symptomatic cholelithiasis, status post open cholecystectomy. 2. Hypertension. 3. Dyslipidemia. 4. Hypothyroidism. Result Diagram: 11/15/18 0500 11/15/18 0500 Subjective 24 Hr Interval Summary Free Text/Dictation Patient feel better after bowel movement. Exam/Review of Systems Exam Vitals Vital Signs Date Temp Pulse Resp B/P (MAP) Pulse Ox O2 O2 Flow FiO2 Time Delivery Rate 11/16/18 09:15 11/16/18 98.1 73 130/75 93 08:16 (93) 11/15/18 Room Air 14:00 11/14/18 3.0 15:04 Intake and Output 11/15/18 11/15/18 11/16/18 1515:00 23:00 07:00 IntakeIntake Total 1900 ml 1300 ml 2270 ml OutputOutput Total 300 ml 430 ml 40 ml BalanceBalance 1600 ml 870 ml 2230 ml Constitutional: well developed Head: normocephalic, atraumatic Neck: supple Respiratory: clear to auscultation Cardiovascular: regular rate and rhythm Gastrointestinal: soft, non-tender Extremities: normal pulses Medications Medication Current Medications Hydromorphone HCl (Dilaudid) 0.5 mg Q2H PRN IV PAIN LEVEL 6-10; Start 11/14/18 at 13:00 Acetaminophen/ Hydrocodone Bitart ([place] (10/325)) 1 tab Q6H PRN PO PAIN; Start 11/14/18 at 13:00 Acetaminophen (Tylenol Tab) 650 mg Q6H PRN PO MILD PAIN(1-3)OR ELEVATED TEMP; Start 11/14/18 at 13:00 Naloxone HCl (Narcan) 0.2 mg PRN PRN IV RR < 8; Start 11/14/18 at 13:00 Atenolol (Tenormin) 50 mg DAILY PO Last administered on 11/16/18at 09:21; Admin Dose 50 MG; Start 11/15/18 at 09:00 Atorvastatin Calcium (Lipitor) 40 mg QHS PO Last administered on 11/15/18 21:29; Admin Dose 40 MG; Start 11/15/18 at 21:00 Escitalopram Oxalate (Lexapro) 20 mg DAILY PO Last administered on 11/16/18 09:21; Admin Dose 20 MG; Start 11/15/18 at 09:00 Levothyroxine Sodium (Synthroid) 137 mcg BEFORE BREAKFAST PO Last administered on 11/16/18 05:59; Admin Dose 137 MCG; Start 11/15/18 at 07:00 Pantoprazole (Protonix Tab) 40 mg DAILY@06 PO Last administered on 11/16/18 05:58; Admin Dose 40 MG; Start 11/15/18 at 10:00 Bisacodyl (Dulcolax) 5 mg DAILY PRN PO CONSTIPATION Last administered on 11/16/18 01:56; Admin Dose 5 MG; Start 11/16/18 at 01:30 Simethicone (Mylicon) 80 mg Q6H PRN PO DISTENSION/GAS/BLOATING Last administered on 11/16/18 11:09; Admin Dose 80 MG; Start 11/16/18 at 11:00 HUMA VINSON Nov 16, 2018 12:33
[2018-11-16 14:00] VITALS: BP 136/73; PULSE 78; RESP 17
[2018-11-16 20:00] VITALS: BP 139/72; PULSE 66; RESP 18
[2018-11-16] MEDS: ATORVASTATIN 40 MG TAB PO SCH (20:19)
[2018-11-17 02:00] VITALS: BP 136/70; PULSE 60; RESP 18
[2018-11-17] MEDS: LEVOTHYROXINE 137 MCG TAB PO SCH (05:21)
[2018-11-17] MEDS: PANTOPRAZOLE (EC) 40 MG TAB PO SCH (05:21)
[2018-11-17 08:13] VITALS: BP 124/71; PULSE 73; RESP 18
[2018-11-17] MEDS: ESCITALOPRAM 10 MG TAB PO SCH (10:46)
[2018-11-17] MEDS: ATENOLOL 50 MG TAB PO SCH (10:46)
--- NOTE | 2018-11-17 12:23 | DS ---
Date/Time of Note Date/Time of Note DATE: 11/17/18 TIME: 12:22 Discharge Summary Admission/Discharge Info Admit Date/Time Nov 14, 2018 at 12:39 Discharge Date/Time 11/17/18 Discharge Diagnosis 1. Symptomatic cholelithiasis, status post open cholecystectomy. 2. Hypertension. 3. Dyslipidemia. 4. Hypothyroidism. Patient Condition: Fair Consults surgery Procedures Laparoscopic cholecystectomy converted to open cholecystectomy Hx of Present Illness Patient with symptomatic cholelithiasis comes in for cholecystectomy. Hospital Course Patient with symptomatic cholelithiasis comes in for cholecystectomy. Patient underwent procedure. He tolerated the procedure and when stable, patient was sent home. 1. Symptomatic cholelithiasis, status post open cholecystectomy. 2. Hypertension. 3. Dyslipidemia. 4. Hypothyroidism. Home Meds Reported Medications Diclofenac Sodium* (Diclofenac Sodium*) 75 Mg Tablet.dr, 75 MG PO BID, #60 TAB 11/14/18 Escitalopram Oxalate* (Escitalopram Oxalate*) 20 Mg Tablet, 20 MG PO DAILY, #30 TAB 11/14/18 Atorvastatin* (Atorvastatin*) 40 Mg Tablet, 40 MG PO QHS, #30 TAB 11/14/18 Omeprazole* (Omeprazole*) 40 Mg Capsule.dr, 40 MG PO DAILY, #30 CAP 11/14/18 Levothyroxine Sodium* (Levoxyl*) 137 Mcg Tablet, 137 MCG PO BEFORE BREAKFAST, #30 TAB 11/14/18 Atenolol* (Atenolol*) 50 Mg Tablet, 50 MG PO DAILY, #30 TAB 11/14/18 Discontinued Reported Medications Celecoxib* (Celebrex*) 100 Mg Capsule, 100 MG PO BID, CAP 09/04/17 Hydrocodone/Acetaminophen ([place] 10-325 Tablet) 1 Each Tablet, 1 EACH PO TID for PAIN, TAB 09/04/17 [Vit D] No Conflict Check, 2000 UNIT PO DAILY 09/04/17 Paroxetine Hcl* (Paxil*) 40 Mg Tablet, 40 MG PO DAILY, TAB 09/04/17 [Levothyroxine] No Conflict Check, 137 MCG PO DAILY 02/07/16 [Gemfibrozil] No Conflict Check, PO DAILY 02/07/16 [Atenolol] No Conflict Check, 50 MG PO DAILY 02/07/16 [Omeprazole] No Conflict Check, 20 MG PO DAILY 02/07/16 Primary Care Provider Not On Staff Doctor Pending Labs Laboratory Tests Test 11/17/18 05:09 White Blood Count 9.2 10^3/ul (4.8-10.8) Red Blood Count 3.56 10^6/ul (4.70-6.10) Hemoglobin 10.0 g/dl (14.0-18.0) Hematocrit 30.3 % (42.0-52.0) Mean Corpuscular Volume 85.1 fl (82.0-101.0) Mean Corpuscular Hemoglobin 28.1 pg (29.0-33.0) Mean Corpuscular Hemoglobin Concent 33.0 g/dl (32.0-37.0) Red Cell Distribution Width 13.8 % (11.5-14.5) Platelet Count 239 10^3/UL (140-415) Mean Platelet Volume 9.4 fl (7.4-10.4) Immature Granulocytes % 9.400 % (0.001-0.429) Neutrophils % 63.3 % (39.0-77.0) Lymphocytes % 17.9 % (15.0-51.0) Monocytes % 7.0 % (0.0-11.0) Eosinophils % 1.7 % (0.0-7.0) Basophils % 0.7 % (0.0-2.0) Nucleated Red Blood Cells % 0.2 /100WBC (0.0-0.0) Immature Granulocytes # 0.870 10^3/ul (0.0-0.031) Neutrophils # 5.8 10^3/ul (1.6-7.5) Lymphocytes # 1.7 10^3/ul (0.8-2.9) Monocytes # 0.7 10^3/ul (0.3-0.9) Eosinophils # 0.2 10^3/ul (0.0-0.5) Basophils # 0.1 10^3/ul (0.0-0.1) Nucleated Red Blood Cells # 0.0 10^3/ul (0.0-0.0) HUMA VINSON Nov 17, 2018 12:23
== END 2018-11-17 14:55 | disposition home or self-care (01) | DRG 414 ==
LOC: SDS 06:50 → REC 12:39 → PP2 14:54
PROVIDERS: ADMIT Surgery; ATTEND Surgery
PROC: 0FJ44ZZ Inspection of Gallbladder, Percutaneous Endoscopic Approach (ICD-10-PCS; 2018-11-14)
PROC: 0FN00ZZ Release Liver, Open Approach (ICD-10-PCS; 2018-11-14)
PROC: 0FN40ZZ Release Gallbladder, Open Approach (ICD-10-PCS; 2018-11-14)
PROC: 0DNU0ZZ Release Omentum, Open Approach (ICD-10-PCS; 2018-11-14)
PROC: 0FT40ZZ Resection of Gallbladder, Open Approach (ICD-10-PCS; principal; 2018-11-14 10:30)
DX: K80.12 Calculus of gallbladder with acute and chronic cholecystitis without obstruction (principal); K65.1 Peritoneal abscess; I10 Essential (primary) hypertension; E78.5 Hyperlipidemia, unspecified; E03.9 Hypothyroidism, unspecified; K66.0 Peritoneal adhesions (postprocedural) (postinfection); K82.8 Other specified diseases of gallbladder
CPT/HCPCS: 74018; 80053; 85025; 88304; J0295; J0690; J1100; J1170; J2175; J2250; J2370; J2405; J2710; J2795; J3010; J7030